=== PATIENT | female | born 1965 | race Caucasian/White ===

== ENCOUNTER → 2025-02-01 10:09 | Outpatient (BNVA) | payer OTHER, MEDICARE, SELFPAY | PROVIDERS: Visit Provider Nurse Practitioner Family | DX: S30.861A Insect bite (nonvenomous) of abdominal wall, initial encounter (principal); X58.XXXA Exposure to other specified factors, initial encounter; L90.5 Scar conditions and fibrosis of skin; Z08 Encounter for follow-up examination after completed treatment for malignant neoplasm; Z85.828 Personal history of other malignant neoplasm of skin; Z87.2 Personal history of diseases of the skin and subcutaneous tissue; D48.5 Neoplasm of uncertain behavior of skin; L57.0 Actinic keratosis | CPT/HCPCS: 11102; 17000; 99213 ==

== ENCOUNTER → 2025-04-16 08:41 | Outpatient (BNVA) | payer MEDICARE, OTHER, SELFPAY | PROVIDERS: Visit Provider Nurse Practitioner Family | DX: L90.5 Scar conditions and fibrosis of skin (principal); Z08 Encounter for follow-up examination after completed treatment for malignant neoplasm; Z85.828 Personal history of other malignant neoplasm of skin; Z87.2 Personal history of diseases of the skin and subcutaneous tissue; S20.462A Insect bite (nonvenomous) of left back wall of thorax, initial encounter; X58.XXXA Exposure to other specified factors, initial encounter; D48.5 Neoplasm of uncertain behavior of skin | CPT/HCPCS: 10120; 11102; 99212 ==